=== PATIENT | female | born 1955 | race Hispanic/Latino ===

== ENCOUNTER 2021-07-17 14:36 | Inpatient (IN) | payer BC ==
[2021-07-17] MEDS ORDERED: Ondansetron ODT 4 MG TAB SL PRN (15:45)
[2021-07-17] MEDS ORDERED: Acetaminophen 325 MG TAB PO PRN (15:45)
[2021-07-17] MEDS ORDERED: Ondansetron PF 4 MG/2 ML Vial IVP PRN (15:45)
[2021-07-17] MEDS ORDERED: Sodium Chloride 0.9% 1,000 ML IV SCH (16:00)
[2021-07-17] MEDS ORDERED: Bisacodyl 10 MG SUPP PR PRN (19:34)
[2021-07-17] MEDS ORDERED: Guaifenesin DM 100-10/5 ML UDCUP PO PRN (19:34)
[2021-07-17] MEDS ORDERED: Bisacodyl 5 MG TAB PO PRN (19:34)
[2021-07-17 21:00] LABS: SARS-CoV-2 PCR by NAA Not Detected (NotDetected)
[2021-07-17] MEDS: Sodium Chloride 0.9% 1,000 ML IV SCH (21:16)
[2021-07-17] MEDS: Heparin 5,000 UNITS/ML VIAL SC SCH (21:16)
[2021-07-17] MEDS: Famotidine/PF 20 mg/2ml Vial SLOW IVP SCH (21:16)
[2021-07-18 06:16] LABS: #Lymphocytes 0.7 thou/uL (1.20-3.40); #Monocytes 0.7 thou/uL (0.11-0.59); #Neutrophils 7.6 thou/uL (1.40-6.50); %Eosinophils 0.1 % (0.0-10.0); %Lymphocytes 8.3 % (21.0-51.0); %Monocytes 7.3 % (0.0-10.0); %Neutrophils 84.3 % (42.0-75.0); Hemoglobin 9.5 g/dL (12.0-16.0); Mean Corpuscular HGB CONC 31.7 g/dL (32.0-36.0); Mean Corpuscular Volume 91.4 fL (78.0-98.0); Mean Platelet Volume 6.8 fL (7.4-10.4); Platelet Count 193 thou/uL (130-400); RBC Distribution Width 14.9 % (11.5-14.5); Red Blood Cell (RBC) Count 3.29 mill/uL (4.20-5.40)
[2021-07-18 06:24] LABS: Hemoglobin A1c 4.8 % (4.0-6.0)
[2021-07-18 06:40] LABS: ALT (SGPT) 30 U/L (8-55); AST (SGOT) 50 U/L (5-34); Albumin 2.6 g/dL (3.4-4.8); Alkaline Phosphatase 615 U/L (40-110); Anion Gap 11 mmol/L (10-20); BUN (Urea Nitrogen) 13 mg/dL (9.8-20.1); Bilirubin, Total 1.5 mg/dL (0.2-1.2); Calc. Creatinine Clearance 70 mL/min (70-130); Carbon Dioxide 18 mmol/L (23-31); Chloride 107 mmol/L (98-107); Globulin 4.1 g/dL (2.4-3.5); Glucose 87 mg/dL (80-115); Potassium 3.4 mmol/L (3.5-5.1); Protein, Total 6.7 g/dL (5.8-8.1); Sodium 133 mmol/L (136-145)
[2021-07-18] MEDS ORDERED: VANCOMYCIN 1.25 GM/250 ML BAG 1.25 GM in Premix Bag 1 BAG IVPB SCH (08:00)
[2021-07-18] MEDS: Heparin 5,000 UNITS/ML VIAL SC SCH ×2 (08:34→20:55)
[2021-07-18] MEDS: Famotidine/PF 20 mg/2ml Vial SLOW IVP SCH (08:34)
[2021-07-18] MEDS: Sodium Chloride 0.9% 1,000 ML IV SCH ×2 (08:38→17:56)
[2021-07-18] MEDS: Metoprolol Tartrate 25 MG TAB PO SCH ×2 (11:17→20:52)
[2021-07-18 14:49] VITALS: BMI 22.3
[2021-07-18 14:53] LABS: Troponin I 0.068 ng/mL (< 0.028)
[2021-07-18] MEDS: Famotidine 20 MG TAB PO SCH (20:52)
[2021-07-18] MEDS ORDERED: Mirtazapine 15 MG TAB PO SCH (21:00)
[2021-07-19] MEDS: Sodium Chloride 0.9% 1,000 ML IV SCH (05:55)
[2021-07-19] MEDS: Heparin 5,000 UNITS/ML VIAL SC SCH (08:43)
[2021-07-19] MEDS: Famotidine 20 MG TAB PO SCH (08:43)
[2021-07-19 12:43] VITALS: BP 116/72; TEMP 98
== END 2021-07-19 14:55 | disposition home or self-care (01) | DRG 308 ==
LOC: 2NO 14:36
PROVIDERS: ADMIT Internal Medicine; ATTEND Internal Medicine
DX: I47.1 Supraventricular tachycardia (principal); A41.9 Sepsis, unspecified organism; R65.20 Severe sepsis without septic shock; C78.02 Secondary malignant neoplasm of left lung; C78.01 Secondary malignant neoplasm of right lung; R64 Cachexia; C18.9 Malignant neoplasm of colon, unspecified; C78.7 Secondary malignant neoplasm of liver and intrahepatic bile duct; I24.8 Other forms of acute ischemic heart disease; E44.0 Moderate protein-calorie malnutrition; Z20.822 Contact with and (suspected) exposure to COVID-19; R74.01 Elevation of levels of liver transaminase levels; R73.9 Hyperglycemia, unspecified; Z90.49 Acquired absence of other specified parts of digestive tract; Z85.038 Personal history of other malignant neoplasm of large intestine; Z88.6 Allergy status to analgesic agent; Z91.010 Allergy to peanuts; Z79.899 Other long term (current) drug therapy; Z68.23 Body mass index [BMI] 23.0-23.9, adult
CPT/HCPCS: 36415; 36416; 80053; 83036; 84443; 84484; 85025; 87086; 93306; J1644; J1956; J3370; J7050; S0028; U0003; U0005